=== PATIENT | female | born 1970 | race Caucasian/White ===

== ENCOUNTER 2020-03-11 10:58 | Outpatient (CLI) | payer BC ==
--- NOTE | 2020-03-11 12:19 | ULT ---
ULTRASOUND RIGHT BREAST: INDICATION: Ultrasound right breast performed to evaluate nodular density seen in the lower right breast on mammo graphy. A small cyst is seen at 6 o'clock measuring approximately 5-7 mm. Another small cyst at 8 o'clock is seen measuring 3-5 mm. No solid mass or nodule. No suspicious sonographic abnormality. IMPRESSION: There are 2 cysts seen on ultrasound corresponding to the mammogram nodules. Ultrasound findings are BIRADS 2, benign findings.
== END 2020-03-11 10:59 | disposition home or self-care (01) ==
LOC: BICULT 10:58
PROVIDERS: ATTEND Plastic Surgery
DX: N63.10 Unspecified lump in the right breast, unspecified quadrant (principal); N60.01 Solitary cyst of right breast